=== PATIENT | female | born 1980 | race African-American/Black ===

== ENCOUNTER 2016-08-11 17:51 | Emergency (ER) | payer OTHER ==
[~2016-08-11] VITALS: Ht 162.6 cm; Wt 110.6 kg
[~2016-08-11 17:51] MED LIST: ONDA1TAB16 PO
[2016-08-11 17:59] VITALS: BP 134/81; PULSE 84; RESP 16; TEMP 99.1; O2SAT 99
--- NOTE | 2016-08-11 19:47 | PD ---
HPI Chief Complaint: Dizziness Time Seen by Provider: 19:38 Travel History International Travel<30 days: No Contact w/Intl Traveler<30days: No Traveled to known affect area: No History of Present Illness HPI The patient is a 35-year-old female who complains of lightheadedness, gradual onset of bifrontal/biparietal headache and some slight nausea without vomiting for 2 days. She denies any significant cough other than what she calls an allergic cough. She does feel upper airway congestion. She does complain of some frequency of urination but denies any dysuria or flank pain. She does have a history of urinary tract infections in the past. 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 Her vital signs show temperature 99.1 but the rest the vital signs are normal. SKIN: Warm and dry. No skin rash is seen. HEAD: Atraumatic. Normocephalic. EYES: Pupils equal and round. No scleral icterus. No injection or drainage. ENT: No nasal bleeding or discharge. Mucous membranes pink and moist. No sinus tenderness is present. NECK: Trachea midline. No JVD. There is no meningismus present. CARDIOVASCULAR: Regular rate and rhythm. No murmur appreciated. GASTROINTESTINAL: Abdomen soft, non-tender, nondistended. Hepatic and splenic margins not palpable. No guarding or rebound is present. MUSCULOSKELETAL: No obvious deformities. No clubbing. No cyanosis. No edema. NEUROLOGICAL: Awake and alert. No obvious cranial nerve deficits. Motor grossly within normal limits. Normal speech. PSYCHIATRIC: Appropriate mood and affect; insight and judgment normal. Data Data Last Documented VS Vital Signs Date Time Temp Pulse Resp B/P Pulse Ox O2 Delivery O2 Flow Rate FiO2 08/11/16 19:55 73 18 127/68 98 Room Air 08/11/16 17:59 99.1 Orders Ed Urine Pregnancytest Poc (08/11/16 18:20) Sodium Chlor 0.9% 1000 Ml Inj (Ns 1000 M (08/11/16 20:45) Ondansetron Inj (Zofran Inj) (08/11/16 20:45) Ketorolac Inj (Toradol Inj) (08/11/16 20:45) Urinalysis - C+S If Indicated (08/11/16 20:34) Labs Laboratory Tests Test 08/11/16 20:45 Urine Color STRAW Urine Turbidity CLEAR Urine pH 7.0 Urine Specific [place] 1.023 Urine Protein NEG mg/dL Urine Glucose (UA) NEG mg/dL Urine Ketones NEG mg/dL Urine Occult Blood TRACE Urine Nitrite NEG Urine Bilirubin NEG Urine Leukocyte Esterase NEG Urine RBC 0-3 /hpf Urine Squamous Epithelial 0-5 /hpf Cells Urine Amorphous Sediment FEW Microscopic Urinalysis Comment CULT NOT INDICATED MDM Medical Decision Making Medical Screen Exam Complete: Yes Emergency Medical Condition: Yes Medical Record Reviewed: Yes Interpretation(s) Urinalysis shows trace occult blood but is otherwise normal and culture is not indicated. The [id number] urine test was negative. Differential Diagnosis Viral syndrome, urinary tract infection, subarachnoid hemorrhagehighly unlikely , Narrative Course It is now 9:30 AM patient's headache is improving and the nausea and lightheadedness have resolved. Impression: Viral syndrome. The patient does not have any clinical findings or historical findings suggestive of any bacterial illness. The urinalysis is normal. The patient is negative on her test. Diagnosis Primary Impression: Viral syndrome Ruled Out: Additional Instructions: Take the Motrin regularly, 1 tablet 3 times a day for the headache and other pains. The Phenergan is taken one tablet every 6 hours to prevent nausea/ vomiting. It is important to stay well-hydrated, drink plenty of liquids like Gatorade or Pedialyte. Follow-up next week with her primary care physician. Being well-hydrated will help avoid the lightheadedness that you experienced today. Med/Other Pt SpecificInfo: Prescription(s) given Scripts Ibuprofen 600 Mg Gbm114 Mg PO TID #45 TAB Ref 0 Prov:Daniel Angel MD 08/11/16 Promethazine (Phenergan)25 Mg Tab25 Mg PO Q6H PRN (Nausea/Vomiting) #28 TAB Ref 0 Prov:Daniel Angel MD 08/11/16 Disposition: 01 DISCHARGE HOME Condition: Stable Daniel Angel MD Aug 11, 2016 19:46
[2016-08-11 19:55] VITALS: BP 127/68; PULSE 73; RESP 18; O2SAT 98
[2016-08-11] MEDS ORDERED: SODIUM CHLOR 0.9% 1000 ML INJ 1,000 ML IV SCH (20:45)
[2016-08-11] MEDS ORDERED: ONDANSETRON HCL 4 MG/2 ML VIAL IV ONE (20:45)
[2016-08-11] MEDS ORDERED: KETOROLAC TROMETHAMINE 60 MG/2 ML (IM) VIAL IVP ONE (20:45)
[2016-08-11 20:55] LABS: BLOOD, URINE TRACE (NEG); GLUCOSE,URINE NEG (NEG); KETONE, URINE NEG (NEG); NITRITE,URINE NEG (NEG)
[2016-08-11 21:01] LABS: URINE COLOR STRAW (YELLW/STRAW)
[2016-08-11 21:02] LABS: COMMENT (UR) CULT NOT INDICATED; CULTURE IF INDICATED CULT NOT INDICATED; RBC, URINE 0-3 /hpf (0-3); SQUAMOUS EPITHELIAL CELL URINE 0-5 /hpf (0-5)
[2016-08-11] MEDS ORDERED: PROM25TA5 PO (21:30)
[2016-08-11] MEDS ORDERED: IBUP-232 PO (21:37)
[2016-08-11 22:14] VITALS: BP 131/70; PULSE 70; RESP 18; O2SAT 98
== END 2016-08-11 22:16 | disposition home or self-care (01) ==
LOC: PHED 17:51
DX: B34.9 Viral infection, unspecified (principal); R51 Headache; R42 Dizziness and giddiness; R11.0 Nausea; R35.0 Frequency of micturition
CPT/HCPCS: 81001; 84703; 96361; 96374; 96375; 99284; J1885; J2405; J7030